=== PATIENT | male | born 1990 | race Caucasian/White ===

== ENCOUNTER 2017-06-10 03:15 | Emergency (ER) | payer BC, MEDICAID ==
[~2017-06-10] VITALS: Ht 182.9 cm; Wt 90.7 kg
[2017-06-10 03:35] VITALS: BP 152/98
--- NOTE | 2017-06-10 03:43 | Emergency Room Report ---
History of Present Illness General Chief Complaint: Abdominal Pain Source: Patient (RetinoNaryaanse Maylin.D.) Present Illness HPI 18-year-old male history of diabetes presenting with sudden onset right-sided flank pain for one day. Sharp, intermittent. No fever chills nausea vomiting. No hematuria. No history of renal stones. Pain is 10 out of 10 (RetinoIrmairose M.D.) Allergies: Coded Allergies: No Known Allergies (Unverified , 06/10/17) Patient History Past Medical History: see triage record Past Surgical History: none Pertinent Family History: none Reviewed Nursing Documentation: PMH: Agreed, PSxH: Agreed (RetinoIrmairose Maylin.DFreddy ) Nursing Documentation-PMH Hx Diabetes: Yes - Type 1 (RetinoNarayanse M.D.) Review of Systems All Other Systems: negative except mentioned in HPI (RetinoIrmairose M.D.) Physical Exam Vital Signs Date Time Temp Pulse Resp B/P (MAP) Pulse Ox O2 Delivery O2 Flow Rate FiO2 06/10/17 03:21 97.7 91 20 158/110 98 Room Air Sp02 EP Interpretation: reviewed, normal General Appearance: alert, GCS 15, non-toxic, severe distress, other - Young male appears to be in a lot of pain Head: normocephalic, atraumatic Eyes: bilateral eye normal inspection, bilateral eye PERRL, bilateral eye EOMI ENT: normal ENT inspection, normal pharynx, normal voice, moist mucus membranes Neck: normal inspection, full range of motion, supple Respiratory: normal inspection, lungs clear, normal breath sounds, no respiratory distress, no retraction, no wheezing, speaking full sentences, chest symmetrical Cardiovascular #1: normal inspection, regular rate, rhythm, no edema, normal capillary refill Cardiovascular #2: 2+ radial (R), 2+ radial (L) Gastrointestinal: normal inspection, non tender, soft, non-distended, no guarding, other - No focal right lower quadrant tenderness Genitourinary: no CVA tenderness Musculoskeletal: normal inspection, back normal, normal range of motion, non- tender Neurologic: normal inspection, alert, oriented x3, responsive, motor strength/ tone normal, sensory intact, normal gait, speech normal Psychiatric: normal inspection, judgement/insight normal, memory normal Skin: normal inspection, normal color, no rash, warm/dry, well hydrated, normal turgor (Retino,Irmairo M.DFreddy) Medical Decision Making Diagnostic Impression: Primary Impression: Right nephrolithiasis ER Course 18-year-old male with right sided flank pain x day DDX: nephrolithiasis VS infected stone vs. pyelonephritis vs. UTI Other intra-abdominal pathology such as appendicitis diverticulitis at this time considered but unlikely, patient has pain however no tenderness on exam Plan: Labs - cbc, bmp, ua, ucx IVF CT abdo pelvis without contrast ER course: Patient treated with IVF, toradol with improvement of pain Labs: mild MAXWELL +UA with RBCs. +UTI - ceftriaxone given CT abdo pelvis ~ R 3mm obstructing stone has required morphine for pain IVF NS 2L urology consulted for obstructing possibly infected stone Disposition: Signed out pt to Dr Edwards 18-year-old male, right-sided 3 mm obstructing stone, UTI Pending symptom control Pending urology consult for infected/obstructive stone Please note that this Emergency Department Report was dictated using [employer] nursing director technology software, occasionally this can lead to erroneous entry secondary to interpretation by the dictation equipment Laboratory Tests Test 06/10/17 03:45 06/10/17 04:56 White Blood Count 11.0 K/UL (4.8-10.8) H Red Blood Count 5.35 M/UL (4.70-6.10) Hemoglobin 16.2 G/DL (14.2-18.0) Hematocrit 48.3 % (42.0-52.0) Mean Corpuscular Volume 90 FL (80-99) Mean Corpuscular Hemoglobin 30.4 PG (27.0-31.0) Mean Corpuscular Hemoglobin Concent 33.6 G/DL (32.0-36.0) Red Cell Distribution Width 11.2 % (11.6-14.8) L Platelet Count 225 K/UL (150-450) Mean Platelet Volume 9.5 FL (6.5-10.1) Neutrophils (%) (Auto) 70.4 % (45.0-75.0) Lymphocytes (%) (Auto) 20.0 % (20.0-45.0) Monocytes (%) (Auto) 8.1 % (1.0-10.0) Eosinophils (%) (Auto) 0.8 % (0.0-3.0) Basophils (%) (Auto) 0.7 % (0.0-2.0) Sodium Level 136 MMOL/L (136-145) Potassium Level 4.2 MMOL/L (3.5-5.1) Chloride Level 100 MMOL/L (98-107) Carbon Dioxide Level 25 MMOL/L (21-32) Anion Gap 11 (5-15) Blood Urea Nitrogen 20 mg/dL (7-18) H Creatinine 1.4 MG/DL (0.55-1.00) H Estimate Glomerular Filtration Rate > 60 mL/min (>60) Glucose Level 308 MG/DL (74-106) H Calcium Level 9.6 MG/DL (8.5-10.1) Total Bilirubin 1.0 MG/DL (0.2-1.0) Aspartate Amino Transferase (AST) 12 U/L (15-37) L Alanine Aminotransferase (ALT) 16 U/L (12-78) Alkaline Phosphatase 77 U/L (46-116) Total Protein 7.4 G/DL (6.4-8.2) Albumin 4.0 G/DL (3.4-5.0) Globulin 3.4 g/dL Albumin/Globulin Ratio 1.1 (1.0-2.7) Lipase 70 U/L (73-393) L Urine Color Yellow Urine Appearance Cloudy Urine pH 6 (4.5-8.0) Urine Specific [place] 1.020 (1.005-1.035) Urine Protein 2+ (NEGATIVE) H Urine Glucose (UA) 4+ (NEGATIVE) H Urine Ketones 3+ (NEGATIVE) H Urine Occult Blood 5+ (NEGATIVE) H Urine Nitrite Negative (NEGATIVE) Urine Bilirubin Negative (NEGATIVE) Urine Urobilinogen Normal MG/DL (0.0-1.0) Urine Leukocyte Esterase 1+ (NEGATIVE) H Urine RBC Tntc /HPF (0 - 0) H Urine WBC 5-10 /HPF (0 - 0) H Urine Squamous Epithelial Cells Few /LPF (NONE/OCC) Urine Bacteria Moderate /HPF (NONE) H (Yashira Pinto M.D.) ER Course This patient was signed out to me by Dr. Pinto. This patient has a 3 mm obstructing stone in the ureter. The patient had some difficulty with pain control. Dr. Pinto was awaiting consultation with the on-call urologist Dr. Lopez, who I spoke with and he will follow-up with this patient closely in the next 24 hours. The patient's urinalysis does not meet criteria for an obstructed infected stone. The patient also nontoxic and afebrile. The patient 's pain is currently controlled. I will go ahead and place the patient on antibiotics, given the patient's history of insulin dependent diabetes. The patient was also given close return precautions to include flulike symptoms, uncontrolled pain or fever. The patient indicated understanding and intention to do so. Laboratory Tests Test 06/10/17 03:45 06/10/17 04:56 White Blood Count 11.0 K/UL (4.8-10.8) H Red Blood Count 5.35 M/UL (4.70-6.10) Hemoglobin 16.2 G/DL (14.2-18.0) Hematocrit 48.3 % (42.0-52.0) Mean Corpuscular Volume 90 FL (80-99) Mean Corpuscular Hemoglobin 30.4 PG (27.0-31.0) Mean Corpuscular Hemoglobin Concent 33.6 G/DL (32.0-36.0) Red Cell Distribution Width 11.2 % (11.6-14.8) L Platelet Count 225 K/UL (150-450) Mean Platelet Volume 9.5 FL (6.5-10.1) Neutrophils (%) (Auto) 70.4 % (45.0-75.0) Lymphocytes (%) (Auto) 20.0 % (20.0-45.0) Monocytes (%) (Auto) 8.1 % (1.0-10.0) Eosinophils (%) (Auto) 0.8 % (0.0-3.0) Basophils (%) (Auto) 0.7 % (0.0-2.0) Sodium Level 136 MMOL/L (136-145) Potassium Level 4.2 MMOL/L (3.5-5.1) Chloride Level 100 MMOL/L (98-107) Carbon Dioxide Level 25 MMOL/L (21-32) Anion Gap 11 (5-15) Blood Urea Nitrogen 20 mg/dL (7-18) H Creatinine 1.4 MG/DL (0.55-1.00) H Estimate Glomerular Filtration Rate > 60 mL/min (>60) Glucose Level 308 MG/DL (74-106) H Calcium Level 9.6 MG/DL (8.5-10.1) Total Bilirubin 1.0 MG/DL (0.2-1.0) Aspartate Amino Transferase (AST) 12 U/L (15-37) L Alanine Aminotransferase (ALT) 16 U/L (12-78) Alkaline Phosphatase 77 U/L (46-116) Total Protein 7.4 G/DL (6.4-8.2) Albumin 4.0 G/DL (3.4-5.0) Globulin 3.4 g/dL Albumin/Globulin Ratio 1.1 (1.0-2.7) Lipase 70 U/L (73-393) L Urine Color Yellow Urine Appearance Cloudy Urine pH 6 (4.5-8.0) Urine Specific [place] 1.020 (1.005-1.035) Urine Protein 2+ (NEGATIVE) H Urine Glucose (UA) 4+ (NEGATIVE) H Urine Ketones 3+ (NEGATIVE) H Urine Occult Blood 5+ (NEGATIVE) H Urine Nitrite Negative (NEGATIVE) Urine Bilirubin Negative (NEGATIVE) Urine Urobilinogen Normal MG/DL (0.0-1.0) Urine Leukocyte Esterase 1+ (NEGATIVE) H Urine RBC Tntc /HPF (0 - 0) H Urine WBC 5-10 /HPF (0 - 0) H Urine Squamous Epithelial Cells Few /LPF (NONE/OCC) Urine Bacteria Moderate /HPF (NONE) H (MARIN STEELE D.OFreddy) EKG Diagnostic Results Rate: normal Rhythm: NSR ST Segments: other - sinus arrythmia ASA given to the pt in ED: No (Yashira Pinto M.D.) CT/MRI/US Diagnostic Results CT/MRI/US Diagnostic Results : Imaging Test Ordered: CT abdo pelvis Impression CT ABDOMEN & PELVIS: There is an obstructing 3 mm calculus within the distal right ureter, with mild right-sided hydroureteronephrosis. Findings consistent with mild right-sided obstructive uropathy. Additional nonobstructing calculus seen within the right renal collecting system. No bowel obstruction. Normal appendix. No free intra-abdominal air or fluid. Electronically signed by Yashira Pinto MD (Yashira Pinto M.D.) Last Vital Signs Date Time Temp Pulse Resp B/P (MAP) Pulse Ox O2 Delivery O2 Flow Rate FiO2 06/10/17 03:21 97.7 91 20 158/110 98 Room Air (Yashira Pinto M.D.) Disposition: HOME, SELF-CARE Condition: Improved Scripts Hydrocodone Bit/Acetaminophen 5-325* (NORCO 5-325*) 1 Each Tablet 1 TAB ORAL Q6H Y for For Pain, #20 TAB 0 Refills Prov: MARIN STEELE D.O. 06/10/17 Cephalexin* (KEFLEX*) 500 Mg Capsule 500 MG ORAL Q6H for 7 Days, #28 CAP 0 Refills Prov: Yahsira Pinto M.D. 06/10/17 Tamsulosin Hcl (TAMSULOSIN HCL*) 0.4 Mg Cap.er.24h 0.4 MG ORAL BEDTIME for 7 Days, #7 CAP 0 Refills Prov: Yashira Pinto M.D. 06/10/17 Ibuprofen* (MOTRIN*) 600 Mg Tablet 600 MG ORAL Q8H Y for For Pain, #30 TAB 0 Refills Prov: Yashira Pinto M.D. 06/10/17 Patient Instructions: Kidney Stones, [id number] Additional Instructions: Please follow up with your primary care doctor within 3 days. Please follow up with urology in one week Please take your prescription medication as directed. Please come back to the emergency room if you are having severe/worsening pain, intractable nausea or vomiting Yashira Pinto M.D. Jun 10, 2017 03:43 MARIN STEELE D.O. Jun 10, 2017 07:43
[2017-06-10] MEDS ORDERED: Morphine Sulfate 4mg/ml Inj IVP ONE ×2 (03:45→04:45)
[2017-06-10] MEDS ORDERED: Ketorolac 30mg Inj IV ONE (03:45)
[2017-06-10 04:02] LABS: BASOPHILS % (AUTO) 0.7 % (0.0-2.0); EOSINOPHILS % (AUTO) 0.8 % (0.0-3.0); MEAN CORPUSCULAR HEMOGLOBIN 30.4 PG (27.0-31.0); MEAN CORPUSCULAR HGB CONC 33.6 G/DL (32.0-36.0); MEAN CORPUSCULAR VOLUME 90 FL (80-99); MEAN PLATELET VOLUME 9.5 FL (6.5-10.1); MONOCYTES % (AUTO) 8.1 % (1.0-10.0); NEUTROPHILS % (AUTO) 70.4 % (45.0-75.0); PLATELET COUNT 225 K/UL (150-450); RED BLOOD COUNT 5.35 M/UL (4.70-6.10); RED CELL DISTRIBUTION WIDTH 11.2 % (11.6-14.8)
[2017-06-10 04:21] LABS: ALANINE AMINOTRANSFERASE 16 U/L (12-78); ALBUMIN/GLOBULIN RATIO 1.1 (1.0-2.7); ANION GAP 11 (5-15); ASPARTATE AMINO TRANSFERASE 12 U/L (15-37); CALCIUM 9.6 MG/DL (8.5-10.1); CARBON DIOXIDE 25 MMOL/L (21-32); CHLORIDE 100 MMOL/L (98-107); CREATININE 1.4 MG/DL (0.55-1.00); GLOMERULAR FILTRATION RATE > 60 mL/min (>60); LIPASE 70 U/L (73-393); POTASSIUM 4.2 MMOL/L (3.5-5.1); SODIUM 136 MMOL/L (136-145); TOTAL PROTEIN 7.4 G/DL (6.4-8.2)
[2017-06-10 04:26] VITALS: BP 128/88
[2017-06-10] MEDS ORDERED: IBUPROFEN600 MG ORAL (04:46)
[2017-06-10] MEDS ORDERED: TAMSULOSIN HCL0.4 MG ORAL (04:46)
[2017-06-10 05:21] LABS: APPEARANCE,URINE CLOUDY; KETONES,URINE 3+ (NEGATIVE); LEUKOCYTE ESTERASE ,URINE 1+ (NEGATIVE); NITRITE,URINE NEGATIVE (NEGATIVE); PH,URINE 6 (4.5-8.0); PROTEIN,URINE 2+ (NEGATIVE); UROBILINOGEN,URINE NORMAL MG/DL (0.0-1.0)
[2017-06-10 05:41] LABS: BACTERIA,URINE MODERATE /HPF; RBC,URINE TNTC /HPF (0 - 0); SQUAMOUS EPITHELIAL CELL,UR FEW /LPF (NONE/OCC)
[2017-06-10 05:50] VITALS: BP 128/88
[2017-06-10] MEDS ORDERED: cefTRIAXone 1 GM in NS 55 ML IVPB ONE (06:00)
[2017-06-10] MEDS ORDERED: KEFLEX500 MG ORAL (06:06)
[2017-06-10 07:01] VITALS: BP 124/80
[2017-06-10] MEDS ORDERED: NORCO 5-325 TA1 EACH ORAL (07:43)
[2017-06-10 08:15] VITALS: BP 123/77
[2017-06-10 08:30] VITALS: BP 123/77
--- NOTE | 2017-06-10 08:56 | Diagnostic Imaging Report ---
Indication: Abdominal pain Technique: Continuous helical transaxial imaging of the abdomen and pelvis was obtained from the lung bases to the pubic symphysis. No intravenous contrast was administered. Coronal 2-D reformats were also obtained. Total Dose length Product (DLP): [address] Dose Index Volume (CTDIvol): 0.15, 15.03 mGy Comparison: none Findings: There is a 2 mm stone in the right distal ureter several centimeters proximal to the UVJ. There is tiny nonobstructive stones in the right kidney. Mild right hydronephrosis demonstrated. Left kidney is unremarkable. No free fluid is identified. Lung bases clear. Normal appendix noted. Impression: Mild right hydronephrosis secondary to a 2 mm right distal ureteral stone. Multiple tiny nonobstructive stones in the right kidney. The CT scanner at [facility] is accredited by the [employer] and the scans are performed using dose optimization techniques as appropriate to a performed exam including Automatic Exposure control.
== END 2017-06-10 08:30 | disposition home or self-care (01) ==
LOC: EDBD 03:15 → EMR 04:33
DX: N13.2 Hydronephrosis with renal and ureteral calculous obstruction (principal); E10.9 Type 1 diabetes mellitus without complications
CPT/HCPCS: 36415; 74176; 80053; 81003; 82962; 83690; 85025; 87086; 96361; 96365; 96375; 96376; 99284; J0696; J1885; J2270; J2405

== ENCOUNTER 2017-06-24 08:01 | Outpatient (CLI) | payer BC, MEDICAID ==
[~2017-06-24 08:01] MED LIST: IBUPROFEN600 MG ORAL; KEFLEX500 MG ORAL; NORCO 5-325 TA1 EACH ORAL; TAMSULOSIN HCL0.4 MG ORAL
--- NOTE | 2017-06-24 09:44 | Diagnostic Imaging Report ---
Indication: Abdominal pain Technique: Spiral acquisitions obtained through the abdomen and pelvis. No oral or IV contrast utilized, per urinary stone protocol. Multiplanar reconstructions were generated. Total dose length product 892 mGycm. CTDIvol(s) 16 mGy. Dose reduction achieved using automated exposure control Comparison: 05/22/17 Findings: Previously demonstrated right distal ureteral calculus is no longer evident. Again demonstrated is a 3 mm interpolar region calyceal calculus the right kidney, as well as at least one other smaller intrarenal calculi. These are unchanged. No left renal or ureteral calculi are evident. No left hydronephrosis or hydroureter. Lack of IV contrast limits of the renal parenchyma. No gross renal parenchymal mass or cyst demonstrated. Lack of IV contrast limits assessment of the other solid organs. The liver, gallbladder, bile ducts, pancreas, spleen, adrenals unremarkable. No retroperitoneal or mesenteric mass or adenopathy. No pelvic mass or adenopathy. No evidence of diverticulosis or diverticulitis. The appendix is normal. No small bowel distention. No free or loculated intraperitoneal air or fluid. There is a tiny fat-containing umbilical hernia. The included lung bases are clear. The bones are unremarkable. Impression: Since 06/10/2017, interim passage of previously demonstrated right distal ureteral calculus. No evidence of ureteral calculus or obstructive uropathy at this time. Multiple nonobstructive right intrarenal calculi, also previously reported on 06/10/2017 and currently unchanged. No other acute or significant abnormality. Incidental finding tiny fat-containing umbilical hernia The CT scanner at [facility] is accredited by the [employer] and the scans are performed using protocols designed to limit radiation exposure to as low as reasonably achievable to attain images of sufficient resolution adequate for diagnostic evaluation.
== END 2017-06-24 10:01 | disposition home or self-care (01) ==
LOC: CAT 08:01
DX: N20.0 Calculus of kidney (principal); K42.9 Umbilical hernia without obstruction or gangrene
CPT/HCPCS: 74176

== ENCOUNTER → 2017-12-30 | Outpatient (CLI) | payer BC ==
--- NOTE | 2017-12-30 17:48 | Diagnostic Imaging Report ---
Indication: Pain Technique: XRAY L Spine Complete w Bend Comparison: Correlation made to images of the lumbar spine from CT of the abdomen and pelvis 06/24/2017 Findings: There are 5 nonrib-bearing lumbar-type vertebral bodies, assuming 12 paired ribs. There is no abnormal lumbar curvature. Lumbar lordosis is maintained. No evidence to suggest spondylolisthesis. No definite evidence of pars defect on oblique views. There is mild disc space narrowing at L5-S1. There is no evidence of acute fracture. Vertebral body heights are within normal limits. Symphysis pubis and sacroiliac joints within normal limits. IMPRESSION: No evidence of acute fracture or traumatic malalignment. Mild degenerative change of the lumbar spine with disc space narrowing at L5-S1. Consider further evaluation with MRI as clinically indicated
== END | disposition home or self-care (01) ==
LOC: RAD 09:31
DX: M54.5 Low back pain (principal)
CPT/HCPCS: 72114

== ENCOUNTER 2020-07-01 10:50 | Emergency (ER) | payer BC ==
[~2020-07-01] VITALS: Ht 182.9 cm; Wt 90.7 kg
--- NOTE | 2020-07-01 11:02 | NUR ---
ED Nurse Note: Pt ambulated to ED from home d/t R flank pain and hematuria going on for 4 days, wc per pt, pain worsens at nightime. Pt is AOx4, calm and cooperative to care, per pt, he has been dx with kidneys stones before. Pt's VSS, on RA, breathing even and unlabored, afebrile on triage. Pt was placed on bed and gown, will continue to monitor.
--- NOTE | 2020-07-01 11:03 | NUR ---
ED Nurse Note: ERMD at bedside.
[2020-07-01 11:04] VITALS: BP 139/94
--- NOTE | 2020-07-01 11:10 | Emergency Room Report ---
History of Present Illness General Chief Complaint: Pain Source: Patient Present Illness HPI 29-year-old male with history of kidney stones here with right-sided flank pain and hematuria. Patient says that he exerted himself over the past several days while moving furniture. He says that 4 days ago he started having gross hematuria and then developed right flank pain. The hematuria has subsided but the flank pain is persisted. Pain is dull in nature, located in the right flank, does not otherwise radiate. No fevers, chills, lightheadedness, chest pain, palpitation, shortness of breath, abdominal pain, other back pain, nausea, vomiting, diarrhea, dysuria. Allergies: Coded Allergies: No Known Allergies (Unverified , 06/10/17) COVID-19 Screening Contact w/high risk pt: No Experienced COVID-19 symptoms?: No COVID-19 Testing performed SPACE OFFICER: No Nursing Documentation-[facility] Past Medical History: No History, Except For Hx Diabetes: Yes - Type 1 Review of Systems All Other Systems: negative except mentioned in HPI Physical Exam Vital Signs Date Time Temp Pulse Resp B/P (MAP) Pulse Ox O2 Delivery O2 Flow Rate FiO2 07/01/20 10:53 98.2 76 16 139/94 (109) 99 Room Air Sp02 EP Interpretation: reviewed, normal General Appearance: no apparent distress, alert, non-toxic Head: normocephalic, atraumatic Eyes: bilateral eye normal inspection, bilateral eye PERRL ENT: hearing grossly normal, normal pharynx, no angioedema, normal voice Neck: full range of motion, supple/symm/no masses Respiratory: chest non-tender, lungs clear, normal breath sounds, speaking full sentences Cardiovascular #1: regular rate, rhythm, no edema Cardiovascular #2: 2+ carotid (R), 2+ carotid (L), 2+ radial (R), 2+ radial (L), 2+ dorsalis pedis (R), 2+ dorsalis pedis (L) Gastrointestinal: normal bowel sounds, non tender, soft, non-distended, no guarding, no rebound, other - Right-sided CVA tenderness on palpation. No abdominal masses Rectal: deferred Genitourinary: normal inspection, no CVA tenderness Musculoskeletal: back normal, normal range of motion, gait/station normal, non- tender Neurologic: alert, motor strength/tone normal, oriented x3, sensory intact, responsive, speech normal Psychiatric: judgement/insight normal, memory normal, mood/affect normal, no suicidal/homicidal ideation Lymphatic: no adenopathy Medical Decision Making Diagnostic Impression: Primary Impression: Kidney stone Additional Impression: Diverticulosis ER Course Laboratory Tests Test 07/01/20 11:12 White Blood Count 8.0 K/UL (4.8-10.8) Red Blood Count 5.29 M/UL (4.70-6.10) Hemoglobin 16.1 G/DL (14.2-18.0) Hematocrit 48.7 % (42.0-52.0) Mean Corpuscular Volume 92 FL (80-99) Mean Corpuscular Hemoglobin 30.4 PG (27.0-31.0) Mean Corpuscular Hemoglobin Concent 33.1 G/DL (32.0-36.0) Red Cell Distribution Width 12.0 % (11.6-14.8) Platelet Count 179 K/UL (150-450) Mean Platelet Volume 11.3 FL (6.5-10.1) H Neutrophils (%) (Auto) 66.6 % (45.0-75.0) Lymphocytes (%) (Auto) 21.9 % (20.0-45.0) Monocytes (%) (Auto) 9.1 % (1.0-10.0) Eosinophils (%) (Auto) 1.2 % (0.0-3.0) Basophils (%) (Auto) 1.2 % (0.0-2.0) Urine Color Pale yellow Urine Appearance Clear Urine pH 6 (4.5-8.0) Urine Specific [place] 1.020 (1.005-1.035) Urine Protein Negative (NEGATIVE) Urine Glucose (UA) 2+ (NEGATIVE) H Urine Ketones 1+ (NEGATIVE) H Urine Blood 5+ (NEGATIVE) H Urine Nitrite Negative (NEGATIVE) Urine Bilirubin Negative (NEGATIVE) Urine Urobilinogen Normal MG/DL (0.0-1.0) Urine Leukocyte Esterase Negative (NEGATIVE) Urine RBC 20-30 /HPF (0 - 0) H Urine WBC 0-2 /HPF (0 - 0) Urine Squamous Epithelial Cells Occasional /LPF Urine Bacteria Occasional /HPF (NONE) Sodium Level 138 MMOL/L (136-145) Potassium Level 4.1 MMOL/L (3.5-5.1) Chloride Level 102 MMOL/L (98-107) Carbon Dioxide Level 32 MMOL/L (21-32) Anion Gap 4 mmol/L (5-15) L Blood Urea Nitrogen 16 mg/dL (7-18) Creatinine 1.3 MG/DL (0.55-1.30) Estimated Glomerular Filtration Rate > 60 mL/min (>60) Glucose Level 216 MG/DL (74-106) H Calcium Level 9.1 MG/DL (8.5-10.1) Total Bilirubin 0.9 MG/DL (0.2-1.0) Aspartate Amino Transferase (AST) 14 U/L (15-37) L Alanine Aminotransferase (ALT) 6 U/L (12-78) L Alkaline Phosphatase 81 U/L (46-116) Total Creatine Kinase 97 U/L (26-308) Total Protein 6.8 G/DL (6.4-8.2) Albumin 4.0 G/DL (3.4-5.0) Globulin 2.8 g/dL Albumin/Globulin Ratio 1.4 (1.0-2.7) Lipase 66 U/L (73-393) L CT abd/pel wo contrast: IMPRESSION: MILD RIGHT HYDROURETERONEPHROSIS SECONDARY TO A DISTAL RIGHT URETERAL STONE APPROXIMATELY 3 MM. SCATTERED DIVERTICULOSIS WITHOUT SIGN OF ACUTE DIVERTICULITIS. 29 yo M here with L sided flank pain and hematuria. Patient was afebrile and was largely nontoxic appearing. Vitals normal. CBC, CMP unremarkable. UA showed evidence of microscopic hematuria, but no evidence of infection. CT abd pel co nfirmed small 3mm ureteral stone in the distal R ureter. The patient received toradal and IVF with good resolution of his pain. He was given a prescription for ibuprofen and Silver and will follow up with his PCP. Told to come back if he has worsening pain, fevers, chills. He expressed understanding and was discharged. Last Vital Signs Date Time Temp Pulse Resp B/P (MAP) Pulse Ox O2 Delivery O2 Flow Rate FiO2 07/01/20 11:04 98.2 16 139/94 99 Room Air 07/01/20 10:53 76 Scripts Hydrocodone Bit/Acetaminophen 5-325* (NORCO 5-325 TABLET*) 1 Each Tablet 1 TAB ORAL Q4H PRN for For Pain, #10 TAB Prov: Sands,Eben M.D. 07/01/20 Ibuprofen* (MOTRIN*) 600 Mg Tablet 600 MG ORAL Q6H PRN for FOR PAIN, #20 TAB 0 Refills Prov: Eben Collier M.D. 07/01/20 Eben Collier M.D. Jul 01, 2020 11:10
[2020-07-01] MEDS ORDERED: Ketorolac 30mg Inj IV ONE (11:15)
[2020-07-01 11:27] LABS: BASOPHILS % (AUTO) 1.2 % (0.0-2.0); EOSINOPHILS % (AUTO) 1.2 % (0.0-3.0); HEMATOCRIT 48.7 % (42.0-52.0); HEMOGLOBIN 16.1 G/DL (14.2-18.0); LYMPHOCYTES % (AUTO) 21.9 % (20.0-45.0); MEAN CORPUSCULAR VOLUME 92 FL (80-99); MONOCYTES % (AUTO) 9.1 % (1.0-10.0); NEUTROPHILS % (AUTO) 66.6 % (45.0-75.0); PLATELET COUNT 179 K/UL (150-450); RED BLOOD COUNT 5.29 M/UL (4.70-6.10)
[2020-07-01 11:28] LABS: APPEARANCE,URINE CLEAR; BILIRUBIN, URINE NEGATIVE (NEGATIVE); COLOR,URINE PALE YELLOW; GLUCOSE, URINE (UA) 2+ (NEGATIVE); KETONES,URINE 1+ (NEGATIVE); LEUKOCYTE ESTERASE ,URINE NEGATIVE (NEGATIVE); NITRITE,URINE NEGATIVE (NEGATIVE); PH,URINE 6 (4.5-8.0); PROTEIN,URINE NEGATIVE (NEGATIVE); UROBILINOGEN,URINE NORMAL MG/DL (0.0-1.0)
--- NOTE | 2020-07-01 11:34 | NUR ---
ED Nurse Note: Pt went to CT accompanied by tech.
[2020-07-01 11:39] LABS: ANION GAP 4 mmol/L (5-15); BLOOD UREA NITROGEN 16 mg/dL (7-18); CALCIUM 9.1 MG/DL (8.5-10.1); CARBON DIOXIDE 32 MMOL/L (21-32); CHLORIDE 102 MMOL/L (98-107); CREATININE 1.3 MG/DL (0.55-1.30); POTASSIUM 4.1 MMOL/L (3.5-5.1); SODIUM 138 MMOL/L (136-145)
[2020-07-01 11:43] LABS: CREATINE KINASE 97 U/L (26-308)
[2020-07-01 11:45] LABS: ALANINE AMINOTRANSFERASE 6 U/L (12-78); ALBUMIN/GLOBULIN RATIO 1.4 (1.0-2.7); ALKALINE PHOSPHATASE 81 U/L (46-116); ASPARTATE AMINO TRANSFERASE 14 U/L (15-37); BILIRUBIN,TOTAL 0.9 MG/DL (0.2-1.0)
--- NOTE | 2020-07-01 11:52 | NUR ---
ED Nurse Note: patient is back from CT, NAD noted
[2020-07-01] MEDS ORDERED: NORCO 5-325 TA1 EAC1 ORAL (12:28)
[2020-07-01] MEDS ORDERED: IBUPROFEN600 M1 ORAL (12:28)
--- NOTE | 2020-07-01 12:30 | Diagnostic Imaging Report ---
EXAM: CT CT Abdomen Pelvis WO Contrast INDICATION: Flank pain and hematuria. COMPARISON: 06/24/2017 TECHNIQUE: Axial images were obtained through the abdomen pelvis without intravenous contrast. Sagittal and coronal reformats are generated. All CT scans at this facility are performed using dose modulation techniques as appropriate to a performed exam including the following: automated exposure control with adjustment of the mA and/or kV according to patient size. RADIATION DOSE: CTDIvol: 7.1 mGy DLP: 377.8 mGy-cm Dose information generated by the CT scanner is available in PACS. FINDINGS: The lung bases are clear. The liver and spleen are homogeneous. Gallbladder is without sludge or stone and there is no wall thickening. The pancreas is unremarkable. Adrenals are normal in morphology. The left kidney is unremarkable. There is mild right hydroureteronephrosis secondary to a distal right ureteral stone approximately 3 mm. Small bowel loops are nondistended. Scattered diverticulosis noted without sign of acute diverticulitis. The appendix is normal. There is no free fluid or free air. No pathologic adenopathy demonstrated. Urinary bladder appears unremarkable. There is no suspicious superficial soft tissue or osseous abnormality. IMPRESSION: MILD RIGHT HYDROURETERONEPHROSIS SECONDARY TO A DISTAL RIGHT URETERAL STONE APPROXIMATELY 3 MM. SCATTERED DIVERTICULOSIS WITHOUT SIGN OF ACUTE DIVERTICULITIS.
[2020-07-01 13:20] VITALS: BP 135/90
--- NOTE | 2020-07-01 13:20 | NUR ---
ER DISCHARGE NOTE: Patient is cleared to be discharged per ERMD, pt is aox4, on room air, with stable vital signs. pt was given dc and prescription instructions, pt was able to verbalize understanding, pt id band and iv site removed without complications. pt is able to ambulate with steady gait. pt took all belongings.
== END 2020-07-01 13:20 | disposition home or self-care (01) ==
LOC: EMR 11:15
DX: N13.2 Hydronephrosis with renal and ureteral calculous obstruction (principal); K57.90 Diverticulosis of intestine, part unspecified, without perforation or abscess without bleeding; E10.8 Type 1 diabetes mellitus with unspecified complications
CPT/HCPCS: 36415; 74176; 80053; 81003; 82550; 83690; 85025; 96361; 96374; 99284; J1885; J7030